=== PATIENT | female | born 1990 | race American Indian/Alaskan Native ===

== ENCOUNTER 2017-05-04 07:40 | Emergency (ER) | payer MEDICAID ==
[2017-05-04 07:49] VITALS: BP 117/74
[2017-05-04] MEDS ORDERED: XYLOCAINE 1%/ EPI 1:100,000 INFILTRATI ONE (08:48)
--- NOTE | 2017-05-04 08:53 | Emergency Department Report ---
- General Chief complaint: Skin/Abscess/Foreign Body Stated complaint: POSS VAG CYST Time Seen by Provider: 05/04/17 08:41 Source: patient Mode of arrival: Ambulatory Limitations: No Limitations - History of Present Illness Initial comments: The patient comes into the ER today with complaints of an abscess to the right side of her panty line for the past 3 days. Patient denies any drainage, fever , body aches, abdominal pain. Patient states that she gets these frequently every couple weeks and that they usually drain or go away on their own. MD complaint: abscess/boil -: days(s) (3) - Related Data Previous Rx's Medication Instructions Recorded Last Taken Type Acetaminophen/Codeine [Tylenol 1 tab PO Q6H PRN #15 tab 05/04/17 Unknown Rx /Codeine # 3 tab] Cephalexin [Keflex] 500 mg PO TID #30 capsule 05/04/17 Unknown Rx Mupirocin [Bactroban 2%] 1 applic TP BID #1 tube 05/04/17 Unknown Rx Sulfamethoxazole/Trimethoprim 1 each PO BID #20 tablet 05/04/17 Unknown Rx [Bactrim DS TAB] Allergies Allergy/AdvReac Type Severity Reaction Status Date / Time No Known Allergies Allergy Unverified 05/04/17 08:20 Abscess Boil HPI - HPI Chief Complaint: Skin/Abscess/Foreign Body Stated Complaint: POSS VAG CYST Time Seen by Provider: 05/04/17 08:41 Home Medications: Previous Rx's Medication Instructions Recorded Last Taken Type Acetaminophen/Codeine [Tylenol 1 tab PO Q6H PRN #15 tab 05/04/17 Unknown Rx /Codeine # 3 tab] Cephalexin [Keflex] 500 mg PO TID #30 capsule 05/04/17 Unknown Rx Mupirocin [Bactroban 2%] 1 applic TP BID #1 tube 05/04/17 Unknown Rx Sulfamethoxazole/Trimethoprim 1 each PO BID #20 tablet 05/04/17 Unknown Rx [Bactrim DS TAB] Allergies/Adverse Reactions: Allergies Allergy/AdvReac Type Severity Reaction Status Date / Time No Known Allergies Allergy Unverified 05/04/17 08:20 ED Review of Systems ROS: Stated complaint: POSS VAG CYST Other details as noted in HPI Constitutional: denies: chills, fever Eyes: denies: eye pain, eye discharge, vision change ENT: denies: ear pain, throat pain Respiratory: denies: cough, shortness of breath, wheezing Cardiovascular: denies: chest pain, palpitations Endocrine: no symptoms reported Gastrointestinal: denies: abdominal pain, nausea, diarrhea Genitourinary: denies: urgency, dysuria, discharge Musculoskeletal: denies: back pain, joint swelling, arthralgia Skin: lesions. denies: rash Neurological: denies: headache, weakness, paresthesias Psychiatric: denies: anxiety, depression Hematological/Lymphatic: denies: easy bleeding, easy bruising ED Past Medical Hx - Past Medical History Previous Medical History?: No - Surgical History Past Surgical History?: No - Social History Smoking Status: Current Every Day Smoker Substance Use Type: Alcohol, Marijuana - Medications Home Medications: Home Medications Medication Instructions Recorded Confirmed Last Taken Type Acetaminophen/Codeine [Tylenol 1 tab PO Q6H PRN #15 tab 05/04/17 Unknown Rx /Codeine # 3 tab] Cephalexin [Keflex] 500 mg PO TID #30 capsule 05/04/17 Unknown Rx Mupirocin [Bactroban 2%] 1 applic TP BID #1 tube 05/04/17 Unknown Rx Sulfamethoxazole/Trimethoprim 1 each PO BID #20 tablet 05/04/17 Unknown Rx [Bactrim DS TAB] ED Physical Exam - General Limitations: No Limitations General appearance: alert, in no apparent distress - Head Head exam: Present: atraumatic, normocephalic - Eye Eye exam: Present: normal appearance - ENT ENT exam: Present: mucous membranes moist - Neck Neck exam: Present: normal inspection - Respiratory Respiratory exam: Present: normal lung sounds bilaterally. Absent: respiratory distress - Cardiovascular Cardiovascular Exam: Present: regular rate, normal rhythm. Absent: systolic murmur, diastolic murmur, rubs, gallop - GI/Abdominal GI/Abdominal exam: Present: soft, normal bowel sounds - Extremities Exam Extremities exam: Present: normal inspection - Back Exam Back exam: Present: normal inspection - Neurological Exam Neurological exam: Present: alert, oriented X3 - Psychiatric Psychiatric exam: Present: normal affect, normal mood - Skin Skin exam: Present: warm, dry, intact, normal color, other (1.5 cm raised, indurated, tender, erythematous abscess noted to the right side of the labia at fold of the thigh.). Absent: rash ED Course Vital Signs 05/04/17 05/04/17 07:48 08:17 Temperature 97.7 F 97.7 F Pulse Rate 87 87 Respiratory 16 16 Rate Blood Pressure 117/74 Blood Pressure 117/74 [Right] O2 Sat by Pulse 99 99 Oximetry - I & D Right Pubic Area Type of Procedure: Simple Site: right side of labia in pelvic/thigh fold Blade Size: 11 I & D Procedure: betadine prep, gauze wick placed Progress: 5 mL of lidocaine with epinephrine infiltrated to abscess. 0.5 cm incision made to abscess. Moderate to large amount of purulent drainage expressed from the incision. Packing placed in incision. Patient tolerated procedure well without complications. ED Medical Decision Making - Medical Decision Making Patient tolerated incision and drainage without any complications or difficulty. I'll continue patient on some antibiotics and have her return in 3 days for packing removal or she may remove the packing herself in the shower. Patient is in agreement with treatment plan and patient is stable for discharge. Critical care attestation.: If time is entered above; I have spent that time in minutes in the direct care of this critically ill patient, excluding procedure time. ED Disposition Clinical Impression: Acute abscess of female pelvis Disposition: - TO HOME OR SELFCARE Is pt being admited?: No Does the pt Need Aspirin: No Condition: Good Instructions: Abscess Incision and Drainage (ED) Prescriptions: Acetaminophen/Codeine [Tylenol /Codeine # 3 tab] 1 tab PO Q6H PRN #15 tab PRN Reason: Pain Cephalexin [Keflex] 500 mg PO TID #30 capsule Mupirocin [Bactroban 2%] 1 applic TP BID #1 tube Sulfamethoxazole/Trimethoprim [Bactrim DS TAB] 1 each PO BID #20 tablet Referrals: PRIMARY CARE,MD [Primary Care Provider] - 3-5 Days [facility], emergency Department [Other] - 2-3 Days (For packing removal) Time of Disposition: 09:50
== END 2017-05-04 10:06 | disposition home or self-care (01) ==
LOC: ED 07:40
DX: N73.0 Acute parametritis and pelvic cellulitis (principal); F17.200 Nicotine dependence, unspecified, uncomplicated; F12.90 Cannabis use, unspecified, uncomplicated

== ENCOUNTER 2017-06-12 01:18 | Emergency (ER) | payer MEDICAID ==
[2017-06-12 01:32] VITALS: BP 116/56
[2017-06-12 02:11] LABS: Basophils % (Auto) 0.7 % (0.0-1.8); Eosinophils % (Auto) 3.2 % (0.0-4.3); Hematocrit 35.3 % (30.3-42.9); Mean Corpuscular HGB Conc 34 % (30-34); Mean Corpuscular Hemoglobin 31 pg (28-32); Mean Corpuscular Volume 91 fl (79-97); Platelet Count 308 K/mm3 (140-440); Red Blood Count 3.86 M/mm3 (3.65-5.03); Red Cell Distribution Width 13.3 % (13.2-15.2)
[2017-06-12 02:14] LABS: Bilirubin,Urine NEG (Negative); Blood,Urine NEG (Negative); Ketones,Urine NEG (Negative); Leukocyte Esterase,Urine NEG (Negative); Mucus,Urine FEW /HPF; Nitrite,Urine NEG (Negative); Protein,Urine <15 mg/dL mg/dL (Negative)
[2017-06-12 02:32] LABS: Alanine Aminotransferase 8 units/L (7-56); Albumin/Globulin Ratio 1.5 %; Alkaline Phosphatase 40 units/L (35-129); Anion Gap 16 mmol/L; BUN/Creatinine Ratio 28.57; Blood Urea Nitrogen 20 mg/dL (7-17); Carbon Dioxide 23 mmol/L (22-30); Chloride 100.1 mmol/L (98-107); Glucose 85 mg/dL (65-100); Lipase 39 units/L (13-60); Potassium 3.7 mmol/L (3.6-5.0); Sodium 135 mmol/L (137-145); Total Protein 6.6 g/dL (6.3-8.2)
== END 2017-06-12 06:30 | disposition left against medical advice (07) ==
LOC: ED 01:18
DX: R10.9 Unspecified abdominal pain (principal); Z53.21 Procedure and treatment not carried out due to patient leaving prior to being seen by health care provider
CPT/HCPCS: 36415; 80053; 81001; 81025; 83690; 85025

== ENCOUNTER 2017-06-12 12:46 | Emergency (ER) | payer MEDICAID ==
--- NOTE | 2017-06-12 15:04 | Emergency Department Report ---
- General Chief Complaint: Skin/Abscess/Foreign Body Stated Complaint: VAGINAL ABCESS Time Seen by Provider: 06/12/17 15:03 Source: patient Mode of arrival: Ambulatory Limitations: No Limitations - History of Present Illness Initial Comments: 26-year-old female past medical history recurrent abscesses presents with complaint of 2-3 days of left inner groin abscess. She states that it is painful. Denies any purulent drainage. Denies any fever or chills. Triage note is incorrect states that she has a toothache this is incorrect patient is here for incision and drainage of an abscess to the left groin. -: Gradual, days(s) (3) 1 - Left inguinal crease abscess approximately 4 cm in diameter. Fluctuant in the center. No involvement of Pyridium no rectal abscess, no involvement of vagina. The abscess is in the left inguinal groin region. Place: home Patient Tetanus UTD: No Associated Symptoms: none - Related Data Previous Rx's Medication Instructions Recorded Last Taken Type Acetaminophen/Codeine [Tylenol 1 tab PO Q6H PRN #15 tab 05/04/17 Unknown Rx /Codeine # 3 tab] Cephalexin [Keflex] 500 mg PO TID #30 capsule 05/04/17 Unknown Rx Mupirocin [Bactroban 2%] 1 applic TP BID #1 tube 05/04/17 Unknown Rx Sulfamethoxazole/Trimethoprim 1 each PO BID #20 tablet 05/04/17 Unknown Rx [Bactrim DS TAB] Acetaminophen/Codeine [Tylenol 1 tab PO Q6H PRN #5 tab 06/12/17 Unknown Rx /Codeine # 3 tab] Cephalexin [Keflex] 500 mg PO Q12HR #14 cap 06/12/17 Unknown Rx Ibuprofen [Motrin] 600 mg PO Q8H PRN #25 tablet 06/12/17 Unknown Rx Ondansetron [Zofran Odt] 4 mg PO Q8HR PRN #10 tab.rapdis 06/12/17 Unknown Rx Sulfamethoxazole/Trimethoprim 1 each PO BID #14 tablet 06/12/17 Unknown Rx [Bactrim DS TAB] Allergies Allergy/AdvReac Type Severity Reaction Status Date / Time No Known Allergies Allergy Verified 06/12/17 12:50 ED Review of Systems ROS: Stated complaint: VAGINAL ABCESS Other details as noted in HPI Constitutional: denies: chills, fever Eyes: denies: eye pain, eye discharge, vision change ENT: denies: ear pain, throat pain Respiratory: denies: cough, shortness of breath, wheezing Cardiovascular: denies: chest pain, palpitations Endocrine: no symptoms reported Gastrointestinal: denies: abdominal pain, nausea, diarrhea Genitourinary: denies: urgency, dysuria, discharge Musculoskeletal: denies: back pain, joint swelling, arthralgia Skin: denies: rash, lesions Neurological: denies: headache, weakness, paresthesias Psychiatric: denies: anxiety, depression Hematological/Lymphatic: denies: easy bleeding, easy bruising ED Past Medical Hx - Past Medical History Previous Medical History?: No - Surgical History Past Surgical History?: No - Social History Smoking Status: Never Smoker Substance Use Type: None - Medications Home Medications: Home Medications Medication Instructions Recorded Confirmed Last Taken Type Acetaminophen/Codeine [Tylenol 1 tab PO Q6H PRN #15 tab 05/04/17 Unknown Rx /Codeine # 3 tab] Cephalexin [Keflex] 500 mg PO TID #30 capsule 05/04/17 Unknown Rx Mupirocin [Bactroban 2%] 1 applic TP BID #1 tube 05/04/17 Unknown Rx Sulfamethoxazole/Trimethoprim 1 each PO BID #20 tablet 05/04/17 Unknown Rx [Bactrim DS TAB] Acetaminophen/Codeine [Tylenol 1 tab PO Q6H PRN #5 tab 06/12/17 Unknown Rx /Codeine # 3 tab] Cephalexin [Keflex] 500 mg PO Q12HR #14 cap 06/12/17 Unknown Rx Ibuprofen [Motrin] 600 mg PO Q8H PRN #25 tablet 06/12/17 Unknown Rx Ondansetron [Zofran Odt] 4 mg PO Q8HR PRN #10 tab.rapdis 06/12/17 Unknown Rx Sulfamethoxazole/Trimethoprim 1 each PO BID #14 tablet 06/12/17 Unknown Rx [Bactrim DS TAB] ED Physical Exam - General Limitations: No Limitations General appearance: alert, in no apparent distress - Head Head exam: Present: atraumatic, normocephalic - Eye Eye exam: Present: normal appearance, PERRL, EOMI - ENT ENT exam: Present: mucous membranes moist - Neck Neck exam: Present: normal inspection, full ROM - Respiratory Respiratory exam: Present: normal lung sounds bilaterally. Absent: respiratory distress - Cardiovascular Cardiovascular Exam: Present: regular rate, normal rhythm. Absent: systolic murmur, diastolic murmur, rubs, gallop - GI/Abdominal GI/Abdominal exam: Present: soft (abdomen is soft nontender nondistended all 4 quadrants), normal bowel sounds - Rectal Rectal exam: Present: normal inspection (there is no rectal abscess on clinical exam), normal rectal tone - External exam: Present: normal external exam - Extremities Exam Extremities exam: Present: normal inspection, full ROM - Back Exam Back exam: Present: normal inspection, full ROM - Neurological Exam Neurological exam: Present: alert, oriented X3, CN II-XII intact, normal gait - Psychiatric Psychiatric exam: Present: normal affect, normal mood - Skin Skin exam: Present: warm, dry, intact, normal color. Absent: rash ED Course Vital Signs 06/12/17 12:50 Temperature 98.6 F Pulse Rate 98 H Respiratory 18 Rate Blood Pressure 118/97 O2 Sat by Pulse 100 Oximetry - I & D Left Pubic Area Type of Procedure: Simple Blade Size: 11 I & D Procedure: betadine prep, sterile dressing applied, gauze wick placed (1/ 4 4 inches of iodoform gauze) Progress: Area anesthetized with 2% lidocaine approximately 3 mL good local anesthesia achieved, single 1.5 cm stab incision made. Wound irrigated with 20ccs saline. Moderate amount of purulent drainage, wound packed with quarter inch of iodoform gauze approximately 2-3 inches. Procedure tolerated well patient felt significant relief ED Medical Decision Making - Medical Decision Making A/P: Left inguinal abscess 1-Motrin when necessary, short course Tylenol 3 2-Bactrim and Keflex twice a day 3-there is no clinical rectal abscess on exam, triage note is incorrect. left inguinal abscess successfully incised and drained, tiny amount of packing waist and some wound Critical care attestation.: If time is entered above; I have spent that time in minutes in the direct care of this critically ill patient, excluding procedure time. ED Disposition Clinical Impression: Abscess of groin, left, Encounter for incision and drainage procedure Disposition: DC- TO HOME OR SELFCARE Is pt being admited?: No Does the pt Need Aspirin: No Condition: Stable Instructions: Abscess (ED), Abscess Incision and Drainage (ED) Prescriptions: Acetaminophen/Codeine [Tylenol /Codeine # 3 tab] 1 tab PO Q6H PRN #5 tab PRN Reason: Pain Cephalexin [Keflex] 500 mg PO Q12HR #14 cap Ibuprofen [Motrin] 600 mg PO Q8H PRN #25 tablet PRN Reason: Pain Ondansetron [Zofran Odt] 4 mg PO Q8HR PRN #10 tab.rapdis PRN Reason: Nausea Sulfamethoxazole/Trimethoprim [Bactrim DS TAB] 1 each PO BID #14 tablet Referrals: [facility] [Provider Group] - 3-5 Days Forms: Work/School Release Form(ED) Time of Disposition: 16:32
[2017-06-12] MEDS ORDERED: NORCO 5/325 PO ONE (15:39)
[2017-06-12] MEDS ORDERED: ZOFRAN ODT PO ONE (15:40)
[2017-06-12 16:47] VITALS: BP 100/57
== END 2017-06-12 17:03 | disposition home or self-care (01) ==
LOC: ED 12:46
DX: L02.214 Cutaneous abscess of groin (principal)
CPT/HCPCS: 36415; 80053; 81001; 81025; 83690; 85025; 99282; Q0162

== ENCOUNTER 2019-03-03 11:23 | Emergency (ER) | payer OTHER ==
[2019-03-03 11:42] VITALS: BP 111/76
--- NOTE | 2019-03-03 11:44 | Emergency Department Report ---
Blank Doc - Documentation Documentation: 28 y/o female presents to ED c/o pain to shoulder, chest and upper back for 1-2 months. Couldnt get here for evaluation due to work. Had time today. No numbness or sob. no dizziness. no trauma. Massage helps and motrin too.
--- NOTE | 2019-03-03 14:27 | Emergency Department Report ---
ED Back Pain/Injury HPI - General Chief Complaint: Back Pain/Injury Stated Complaint: RT SIDE NUMB/BACK PAIN Time Seen by Provider: 03/03/19 11:41 Source: patient Limitations: No Limitations - History of Present Illness Initial Comments: Pt is a 28 yo female who presents to the ED with c/o bilateral upper back pain that began a month ago. She has associated right sided neck pain. she denies any injury, fall, trauma, numbness, weakness, bowel/bladder incontinence, or SOB. She states that she is constantly picking up her 9 month old son. 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 The patient denies any PMHx, no PCP. - Related Data Previous Rx's Medication Instructions Recorded Last Taken Type Acetaminophen/Codeine [Tylenol 1 tab PO Q6H PRN #15 tab 05/04/17 Unknown Rx /Codeine # 3 tab] Cephalexin [Keflex] 500 mg PO TID #30 capsule 05/04/17 Unknown Rx Mupirocin [Bactroban 2%] 1 applic TP BID #1 tube 05/04/17 Unknown Rx Sulfamethoxazole/Trimethoprim 1 each PO BID #20 tablet 05/04/17 Unknown Rx [Bactrim DS TAB] Acetaminophen/Codeine [Tylenol 1 tab PO Q6H PRN #5 tab 06/12/17 Unknown Rx /Codeine # 3 tab] Ibuprofen [Motrin] 600 mg PO Q8H PRN #25 tablet 06/12/17 Unknown Rx Ondansetron [Zofran Odt] 4 mg PO Q8HR PRN #10 tab.rapdis 06/12/17 Unknown Rx Sulfamethoxazole/Trimethoprim 1 each PO BID #14 tablet 06/12/17 Unknown Rx [Bactrim DS TAB] cephALEXin [Keflex] 500 mg PO Q12HR #14 cap 06/12/17 Unknown Rx Ondansetron [Zofran Odt] 4 mg PO Q8HR PRN #14 tab.rapdis 10/01/18 Unknown Rx Cyclobenzaprine [Flexeril] 10 mg PO QHS PRN #10 tablet 03/03/19 Unknown Rx Ibuprofen 800 mg PO Q6HR PRN #14 tablet 03/03/19 Unknown Rx Allergies Allergy/AdvReac Type Severity Reaction Status Date / Time No Known Allergies Allergy Verified 06/12/17 12:50 ED Review of Systems ROS: Stated complaint: RT SIDE NUMB/BACK PAIN Other details as noted in HPI Comment: All other systems reviewed and negative ED Past Medical Hx - Past Medical History Previous Medical History?: No - Surgical History Past Surgical History?: No - Social History Smoking Status: Current Every Day Smoker Substance Use Type: Alcohol - Medications Home Medications: Home Medications Medication Instructions Recorded Confirmed Last Taken Type Acetaminophen/Codeine [Tylenol 1 tab PO Q6H PRN #15 tab 05/04/17 Unknown Rx /Codeine # 3 tab] Cephalexin [Keflex] 500 mg PO TID #30 capsule 05/04/17 Unknown Rx Mupirocin [Bactroban 2%] 1 applic TP BID #1 tube 05/04/17 Unknown Rx Sulfamethoxazole/Trimethoprim 1 each PO BID #20 tablet 05/04/17 Unknown Rx [Bactrim DS TAB] Acetaminophen/Codeine [Tylenol 1 tab PO Q6H PRN #5 tab 06/12/17 Unknown Rx /Codeine # 3 tab] Ibuprofen [Motrin] 600 mg PO Q8H PRN #25 tablet 06/12/17 Unknown Rx Ondansetron [Zofran Odt] 4 mg PO Q8HR PRN #10 tab.rapdis 06/12/17 Unknown Rx Sulfamethoxazole/Trimethoprim 1 each PO BID #14 tablet 06/12/17 Unknown Rx [Bactrim DS TAB] cephALEXin [Keflex] 500 mg PO Q12HR #14 cap 06/12/17 Unknown Rx Ondansetron [Zofran Odt] 4 mg PO Q8HR PRN #14 tab.rapdis 10/01/18 Unknown Rx Cyclobenzaprine [Flexeril] 10 mg PO QHS PRN #10 tablet 03/03/19 Unknown Rx Ibuprofen 800 mg PO Q6HR PRN #14 tablet 03/03/19 Unknown Rx ED Physical Exam - General Limitations: No Limitations General appearance: alert, in no apparent distress - Head Head exam: Present: atraumatic, normocephalic - Eye Eye exam: Present: normal appearance, PERRL - ENT ENT exam: Present: mucous membranes moist - Neck Neck exam: Present: normal inspection, full ROM, other (mild right sided paraspinal muscular TTP, no midline C-spine tenderness, no step offs, no deformities) - Respiratory Respiratory exam: Present: normal lung sounds bilaterally. Absent: respiratory distress, wheezes, rales, rhonchi, stridor, chest wall tenderness, accessory muscle use, decreased breath sounds, prolonged expiratory - Cardiovascular Cardiovascular Exam: Present: regular rate, normal rhythm, normal heart sounds. Absent: systolic murmur, diastolic murmur, rubs, gallop - Back Exam Back exam: Present: normal inspection, full ROM, paraspinal tenderness (bilateral T-spine paraspinal muscular TTP, no midline T-spine or L-spine tenderness, no step offs, no deformities). Absent: vertebral tenderness - Neurological Exam Neurological exam: Present: alert, oriented X3, CN II-XII intact, normal gait, other (equal vegetable tier stregnth, normal finger to nose, normal heel to pinto, 5/5 strength in the BUE/BLE, sensation intact, no focal neuro deficit). Absent: motor sensory deficit - Psychiatric Psychiatric exam: Present: normal affect, normal mood - Skin Skin exam: Present: warm, dry, intact ED Course Vital Signs 03/03/19 11:37 Temperature 98.4 F Pulse Rate 68 Respiratory 18 Rate Blood Pressure 111/76 O2 Sat by Pulse 100 Oximetry ED Medical Decision Making - Radiology Data Radiology results: report reviewed CXR with no acute process - Medical Decision Making Pt is a 28 yo female who presents to the ED with c/o bilateral upper back pain that began a month ago. She has associated right sided neck pain. she denies any injury, fall, trauma, numbness, weakness, bowel/bladder incontinence, or SOB. She states that she is constantly picking up her 9 month old son. 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 The patient denies any PMHx, no PCP. CXR with no acute process. pt has paraspinal muscular tenderness of the right c- spine, and bilateral t-spine. no midline C-spine, T-spine, or L-spine tenderness, step offs or deformities. no neuro deficits. pt given tx for muscle strain. advised to only take muscle relaxer at night as needed and do not drive or operate heavy machinery. use heat, ice, rest, epsom salt bath. Follow up with the PCP in the next 2-3 days. Return to the ED for any new or worsening symptoms. Critical care attestation.: If time is entered above; I have spent that time in minutes in the direct care of this critically ill patient, excluding procedure time. ED Disposition Clinical Impression: Upper back pain, Muscle strain, Neck pain Disposition: TO HOME OR SELFCARE Is pt being admited?: No Does the pt Need Aspirin: No Condition: Stable Instructions: Muscle Strain (ED) Additional Instructions: Please take medication as prescribed. Only use muscle relaxer at night as needed and do not drive or operate heavy machinery. use ice pack, heating pad, epsom salt bath, rest. Do not do any heavy lifting. Follow up with a primary care doctor in the next 2-3 days. Return to the emergency room for any new or worsening symptoms. Prescriptions: Cyclobenzaprine [Flexeril] 10 mg PO QHS PRN #10 tablet PRN Reason: Muscle Spasm Ibuprofen 800 mg PO Q6HR PRN #14 tablet PRN Reason: Pain, Moderate (4-6) Referrals: JOHN ADAN MD [Primary Care Provider] - 2-3 Days Time of Disposition: 15:11 Print Language: ARMENIAN
--- NOTE | 2019-03-03 15:09 | XRay Report ---
PROCEDURE: XR CHEST ROUTINE 2V TECHNIQUE: PA and lateral chest radiographs were obtained. HISTORY: pain to right chest for 1-2 months COMPARISONS: None. FINDINGS: Heart: Normal. Mediastinum/Vessels: Normal. Lungs/Pleural space: No infiltrate, effusion, or pneumothorax. Bony thorax: No acute osseous abnormality. IMPRESSION: No radiographic evidence of acute abnormality. This document is electronically signed by Maria Elena Carr MD., Mar 03 2019 03:06:51 PM ET
== END 2019-03-03 15:23 | disposition home or self-care (01) ==
LOC: ED 11:23
DX: S16.1XXA Strain of muscle, fascia and tendon at neck level, initial encounter (principal); S29.012A Strain of muscle and tendon of back wall of thorax, initial encounter; F17.200 Nicotine dependence, unspecified, uncomplicated; W01.198A Fall on same level from slipping, tripping and stumbling with subsequent striking against other object, initial encounter; Y93.89 Activity, other specified; Y92.89 Other specified places as the place of occurrence of the external cause; Y99.8 Other external cause status
CPT/HCPCS: 71046; 99283

== ENCOUNTER 2021-05-02 21:34 | Emergency (ER) | payer SELFPAY ==
[2021-05-02 23:31] LABS: Basophils # (Auto) 0.1 K/mm3 (0.0-0.1); Basophils % (Auto) 0.9 % (0.0-1.8); Eosinophils # (Auto) 0.3 K/mm3 (0.0-0.4); Eosinophils % (Auto) 3.8 % (0.0-4.3); Hematocrit 36.7 % (30.3-42.9); Hemoglobin 12.3 gm/dl (10.1-14.3); Lymphocytes % (Auto) 52.6 % (13.4-35.0); Mean Corpuscular HGB Conc 34 % (30-34); Mean Corpuscular Volume 87 fl (79-97); Monocytes # (Auto) 0.5 K/mm3 (0.0-0.8); Monocytes % (Auto) 6.7 % (0.0-7.3); Platelet Count 374 K/mm3 (140-440); Red Blood Count 4.24 M/mm3 (3.65-5.03); Red Cell Distribution Width 16.7 % (13.2-15.2)
[2021-05-02 23:53] LABS: BUN/Creatinine Ratio 10; Blood Urea Nitrogen 8 mg/dL (7-17); Calcium 9.6 mg/dL (8.4-10.2); Hemolysis Index 3
[2021-05-03 00:07] VITALS: BP 104/66
[2021-05-03 01:16] LABS: Bacteria,Urine 1+ /HPF (Negative); Bilirubin,Urine NEG (Negative); Blood,Urine LG (Negative); Color,Urine Yellow (Yellow); Mucus,Urine 2+ /HPF; Urobilinogen,Urine < 2.0 mg/dL (<2.0)
--- NOTE | 2021-05-03 03:31 | Emergency Department Report ---
<MARYANDRADEANYA - Last Filed: 05/03/21 03:27> ED Female HPI - General Chief complaint: Vaginal Bleeding Stated complaint: PAINFUL URINATION/ABN BLEEDING Time Seen by Provider: 05/03/21 00:30 Source: patient Mode of arrival: Ambulatory Limitations: No Limitations - History of Present Illness Initial comments: 30-year-old F [place] female presents emerged from complaining of a 6-day history of cramping sensation to the pelvic area primarily with with with urination and brownish-reddish bleeding off and on of an unknown etiology. She also states when she notices any blood on the left the urination and wiping. Ports no fever, chills, sweats hemoptysis hematemesis hematochezia, no, vomiting -: Gradual Location: suprapubic Radiation: non-radiating Severity: mild Quality: burning Improves with: none Worsens with: none - Related Data Previous Rx's Medication Instructions Recorded Last Taken Type Acetaminophen/Codeine [Tylenol 1 tab PO Q6H PRN #15 tab 05/04/17 Unknown Rx /Codeine # 3 tab] Mupirocin [Bactroban 2%] 1 applic TP BID #1 tube 05/04/17 Unknown Rx Sulfamethoxazole/Trimethoprim 1 each PO BID #20 tablet 05/04/17 Unknown Rx [Bactrim DS TAB] cephALEXin [Keflex] 500 mg PO TID #30 capsule 05/04/17 Unknown Rx Acetaminophen/Codeine [Tylenol 1 tab PO Q6H PRN #5 tab 06/12/17 Unknown Rx /Codeine # 3 tab] Ibuprofen [Motrin] 600 mg PO Q8H PRN #25 tablet 06/12/17 Unknown Rx Ondansetron [Zofran Odt] 4 mg PO Q8HR PRN #10 tab.rapdis 06/12/17 Unknown Rx Sulfamethoxazole/Trimethoprim 1 each PO BID #14 tablet 06/12/17 Unknown Rx [Bactrim DS TAB] cephALEXin [Keflex] 500 mg PO Q12HR #14 cap 06/12/17 Unknown Rx Ondansetron [Zofran Odt] 4 mg PO Q8HR PRN #14 tab.rapdis 10/01/18 Unknown Rx Cyclobenzaprine [Flexeril] 10 mg PO QHS PRN #10 tablet 03/03/19 Unknown Rx Ibuprofen 800 mg PO Q6HR PRN #14 tablet 03/03/19 Unknown Rx Phenazopyridine [Pyridium] 200 mg PO TID #10 tab 05/03/21 Unknown Rx Allergies Allergy/AdvReac Type Severity Reaction Status Date / Time No Known Allergies Allergy Verified 06/12/17 12:50 ED Review of Systems Comment: All other systems reviewed and negative ED Past Medical Hx - Past Medical History Previous Medical History?: No - Surgical History Past Surgical History?: No - Social History Smoking Status: Unknown if ever smoked Substance Use Type: None - Medications Home Medications: Home Medications Medication Instructions Recorded Confirmed Last Taken Type Acetaminophen/Codeine [Tylenol 1 tab PO Q6H PRN #15 tab 05/04/17 Unknown Rx /Codeine # 3 tab] Mupirocin [Bactroban 2%] 1 applic TP BID #1 tube 05/04/17 Unknown Rx Sulfamethoxazole/Trimethoprim 1 each PO BID #20 tablet 05/04/17 Unknown Rx [Bactrim DS TAB] cephALEXin [Keflex] 500 mg PO TID #30 capsule 05/04/17 Unknown Rx Acetaminophen/Codeine [Tylenol 1 tab PO Q6H PRN #5 tab 06/12/17 Unknown Rx /Codeine # 3 tab] Ibuprofen [Motrin] 600 mg PO Q8H PRN #25 tablet 06/12/17 Unknown Rx Ondansetron [Zofran Odt] 4 mg PO Q8HR PRN #10 tab.rapdis 06/12/17 Unknown Rx Sulfamethoxazole/Trimethoprim 1 each PO BID #14 tablet 06/12/17 Unknown Rx [Bactrim DS TAB] cephALEXin [Keflex] 500 mg PO Q12HR #14 cap 06/12/17 Unknown Rx Ondansetron [Zofran Odt] 4 mg PO Q8HR PRN #14 tab.rapdis 10/01/18 Unknown Rx Cyclobenzaprine [Flexeril] 10 mg PO QHS PRN #10 tablet 03/03/19 Unknown Rx Ibuprofen 800 mg PO Q6HR PRN #14 tablet 03/03/19 Unknown Rx Phenazopyridine [Pyridium] 200 mg PO TID #10 tab 05/03/21 Unknown Rx ED Physical Exam - General Limitations: No Limitations General appearance: alert, in no apparent distress - Head Head exam: Present: atraumatic, normocephalic - Eye Eye exam: Present: normal appearance - ENT ENT exam: Present: mucous membranes moist - Neck Neck exam: Present: normal inspection - Respiratory Respiratory exam: Present: normal lung sounds bilaterally. Absent: respiratory distress - Cardiovascular Cardiovascular Exam: Present: regular rate, normal rhythm. Absent: systolic murmur, diastolic murmur, rubs, gallop - GI/Abdominal GI/Abdominal exam: Present: soft, tenderness (Minimal tenderness to the suprapubic area), normal bowel sounds - Extremities Exam Extremities exam: Present: normal inspection, normal capillary refill - Back Exam Back exam: Present: normal inspection. Absent: CVA tenderness (R), CVA tenderness (L), muscle spasm, paraspinal tenderness - Neurological Exam Neurological exam: Present: alert, oriented X3 - Psychiatric Psychiatric exam: Present: normal affect, normal mood - Skin Skin exam: Present: warm, dry, intact, normal color. Absent: rash ED Medical Decision Making - Lab Data Result diagrams: 05/02/21 23:02 05/02/21 23:02 ED Disposition Clinical Impression: Dysuria Disposition: DC-01 TO HOME OR SELFCARE Is pt being admited?: No Does the pt Need Aspirin: No Condition: Stable Instructions: Dysuria Additional Instructions: You have been seen evaluate emergency department today for pelvic cramps and dysuria. Your exam and labs today showed no evidence of any serious medical conditions requiring emergent intervention at this time. Currently I recommend you follow-up with your [facility] or primary care provider for further evaluation and definitive treatment. Please follow-up with your primary care doctor in 2 days. May return to emerge department if experiencing worsening uncontrolled pain, inability to tolerate oral medication, sent heavy bleeding with pelvic pain or any other concerning symptoms Prescriptions: Phenazopyridine [Pyridium] 200 mg PO TID #10 tab Referrals: PRIMARY CAREM[facility] [Primary Care Provider] - 3-5 Days [facility] [Provider Group] - 3-5 Days <ABHAY BEARD - Last Filed: 05/04/21 08:58> ED Review of Systems ROS: Stated complaint: PAINFUL URINATION/ABN BLEEDING Other details as noted in HPI ED Course Vital Signs 05/02/21 05/03/21 22:36 04:10 Temperature 98.5 F Pulse Rate 77 87 Respiratory 18 16 Rate Blood Pressure 104/66 O2 Sat by Pulse 99 97 Oximetry ED Medical Decision Making - Lab Data Result diagrams: 05/02/21 23:02 05/02/21 23:02 Critical care attestation.: If time is entered above; I have spent that time in minutes in the direct care of this critically ill patient, excluding procedure time. ED Disposition Is pt being admited?: No Does the pt Need Aspirin: No
== END 2021-05-03 04:10 | disposition home or self-care (01) ==
LOC: ED 21:34
DX: R30.0 Dysuria (principal); Z79.899 Other long term (current) drug therapy
CPT/HCPCS: 36415; 80048; 81001; 84703; 85025; 87086